=== PATIENT | male | born 1960 | race Two or more races ===

== ENCOUNTER 2019-12-06 08:54 | Outpatient (CLI) | payer OTHER | END 2019-12-06 09:29 | disposition home or self-care (01) | LOC: NUCLEAR 08:54 | PROVIDERS: ATTEND Dermatology | DX: C43.8 Malignant melanoma of overlapping sites of skin (principal) | CPT/HCPCS: 78815; A9552 ==

== ENCOUNTER 2020-08-21 07:30 | Inpatient (IN) | payer OTHER ==
[~2020-08-21] VITALS: Ht 180.3 cm; Wt 115.7 kg
[2020-08-21] MEDS ORDERED: ADEMPAS2.5 MG PO (10:12)
[2020-08-21] MEDS ORDERED: XARELTO20 M1 PO (10:12)
[2020-08-21] MEDS ORDERED: SIMVAST PO (10:13)
[2020-08-21] MEDS ORDERED: DECADRON4 MG PO (10:13)
[2020-08-21] MEDS ORDERED: FUROSE PO (10:14)
[2020-08-21] MEDS ORDERED: CATAFLAN PO (10:14)
[2020-08-27] MEDS ORDERED: LASIX20 MG (11:56)
[2020-08-27] MEDS ORDERED: SIMVASTATIN20 MG PO (11:57)
[2020-08-27] MEDS ORDERED: FUROSEMIDE40 MG (11:58)
[2020-08-27] MEDS ORDERED: IMIQUIMOD1 EACH (11:58)
[2020-08-28] MEDS ORDERED: B-121000 MC1 (08:23)
[2020-08-28] MEDS ORDERED: DICLOFENAC SODI50 MG PO (08:25)
[2020-09-02] MEDS ORDERED: XARELTO20 M1 PO (08:53)
[2020-09-02] MEDS ORDERED: DUI500 PO (08:53)
[2020-09-02] MEDS ORDERED: PERCOCET 5-3251 EACH PO (08:53)
== END 2020-09-02 14:29 | disposition home or self-care (01) | DRG 470 ==
LOC: SURH 08-27 07:30 → O/R 08-27 09:38 → SURH 08-27 09:38 → O/R 08-28 12:06 → SURH 08-28 12:09
PROVIDERS: ADMIT Orthopaedic Surgery; ATTEND Orthopaedic Surgery
PROC: 3E0F7SF Introduction of Other Gas into Respiratory Tract, Via Natural or Artificial Opening (ICD-10-PCS; 2020-08-27)
PROC: 4A12X4Z Monitoring of Cardiac Electrical Activity, External Approach (ICD-10-PCS; 2020-08-27)
PROC: 0SR90J9 Replacement of Right Hip Joint with Synthetic Substitute, Cemented, Open Approach (ICD-10-PCS; principal; 2020-08-27 17:30)
PROC: 30233N1 Transfusion of Nonautologous Red Blood Cells into Peripheral Vein, Percutaneous Approach (ICD-10-PCS; 2020-08-30)
DX: M16.11 Unilateral primary osteoarthritis, right hip (principal); D62 Acute posthemorrhagic anemia; M25.751 Osteophyte, right hip; M70.61 Trochanteric bursitis, right hip; Z86.711 Personal history of pulmonary embolism; Z20.822 Contact with and (suspected) exposure to COVID-19